=== PATIENT | male | born 1945 | race Caucasian/White ===

== ENCOUNTER 2017-04-12 11:07 | Emergency (ER) | payer MEDICARE ==
[~2017-04-12] VITALS: Ht 177.8 cm; Wt 95.8 kg
[2017-04-12 11:12] VITALS: BP 146/80
== END 2017-04-12 16:22 | disposition home or self-care (01) ==
LOC: ED 16:10
DX: S72.114A Nondisplaced fracture of greater trochanter of right femur, initial encounter for closed fracture (principal); M25.551 Pain in right hip; I10 Essential (primary) hypertension; X50.1XXA Overexertion from prolonged static or awkward postures, initial encounter; Y93.89 Activity, other specified; Y92.009 Unspecified place in unspecified non-institutional (private) residence as the place of occurrence of the external cause; Y99.9 Unspecified external cause status
CPT/HCPCS: 99284

== ENCOUNTER 2017-07-19 11:35 | Inpatient (IN) | payer MEDICARE ==
[~2017-07-19] VITALS: Ht 177.8 cm; Wt 98.1 kg
[~2017-07-19 11:35] MED LIST: IBUP-1221 PO; KETOROLAC 60 MG/2 ML ONE; LISI-167 PO; LOVA40TA2 PO; ROPIvacaine/PF 0.5%, 20 ML ONE; SODIUM CHLORIDE 0.9% 100 ML ONE; TRANEXAMIC ACID 100 MG/ML, 10ML ONE; VANCOMYCIN 1,000 MG ONE; [UNRECOGNIZED DRUG - OTHER] PO; [UNRECOGNIZED DRUG - OTHER] PO
[2017-07-19] MEDS ORDERED: FENTANYL PF 100 MCG/2ML ONE (11:45)
[2017-07-19] MEDS ORDERED: MIDAZOLAM 1 MG/ML, 2ML ONE (11:45)
[2017-07-19] MEDS ORDERED: SODIUM CHLORIDE 0.9% PF 10ML ONE (11:46)
[2017-07-19] MEDS ORDERED: PROPOFOL 10 MG/ML, 20ML ONE (11:46)
[2017-07-19] MEDS ORDERED: CEFAZOLIN 1,000 MG ONE ×3 (11:46→12:40)
[2017-07-19] MEDS ORDERED: LIDOCAINE 2% 100MG/5ML SYRINGE ONE (11:46)
[2017-07-19] MEDS ORDERED: LIDOCAINE 1%, 2ML ONE (11:50)
[2017-07-19] MEDS ORDERED: LACTATED RINGERS 1,000 ML IV SCH (11:53)
[2017-07-19 11:54] VITALS: BP 154/89
[2017-07-19] MEDS ORDERED: hydrALAzine 20 MG/ML, 1ML IV PRN (12:00)
[2017-07-19] MEDS ORDERED: ACETAMINOPHEN 325 MG TABLET PO PRN (12:00)
[2017-07-19] MEDS ORDERED: OXYcodone 5 MG/5 ML ORAL.SOL UDC PO PRN (12:00)
[2017-07-19] MEDS ORDERED: LABETALOL 5MG/ML, 20ML IV PRN (12:00)
[2017-07-19] MEDS ORDERED: VANCOMYCIN PER PHARMACY MC PRN (12:00)
[2017-07-19] MEDS ORDERED: HYDROmorphone 1 MG/ML, 1ML IV PRN ×2 (12:00→16:00)
[2017-07-19] MEDS ORDERED: LIDOCAINE 1%, 2ML SQ PRN (12:00)
[2017-07-19] MEDS ORDERED: ONDANSETRON 2MG/ML, 2ML IVPush PRN (12:00)
[2017-07-19] MEDS ORDERED: FENTANYL PF 100 MCG/2ML IV PRN (12:00)
[2017-07-19] MEDS ORDERED: PHARMACOKINETIC CONSULTATION MC ONE (12:00)
[2017-07-19] MEDS ORDERED: VANCOMYCIN 1,900 MG in SODIUM CHLORIDE 0.9% 250 ML IV ONE (12:00)
[2017-07-19] MEDS ORDERED: PROMETHAZINE 25 MG/ML, 1ML IV PRN (12:00)
[2017-07-19] MEDS ORDERED: MEPERIDINE/PF 25MG/0.5ML IVPush PRN (12:00)
[2017-07-19] MEDS ORDERED: GLYCOPYRROLATE 0.2MG/1ML, 5ML ONE (12:40)
[2017-07-19] MEDS ORDERED: ONDANSETRON 2MG/ML, 2ML ONE (12:40)
[2017-07-19] MEDS ORDERED: KETAMINE 10 MG/ML, 20ML ONE (12:40)
[2017-07-19] MEDS ORDERED: PHENYLEPHRINE 10 MG/ML ONE (12:40)
[2017-07-19] MEDS ORDERED: HYDROmorphone 2 MG/ML, 1ML ONE ×2 (13:13→14:14)
[2017-07-19] MEDS: D5%-0.45% NACL 1,000 ML IV SCH ×2 (15:37→19:19)
[2017-07-19] MEDS ORDERED: ZOLPIDEM 5MG TABLET PO PRN (16:00)
[2017-07-19] MEDS ORDERED: ONDANSETRON 4 MG TABLET PO PRN (16:00)
[2017-07-19] MEDS ORDERED: ACETAMINOPHEN 650 MG/20.3 ML UDC PO SCH (16:00)
[2017-07-19] MEDS ORDERED: PROMETHAZINE 12.5 MG SUPP PR PRN (16:00)
[2017-07-19] MEDS ORDERED: BISACODYL 10 MG SUPP PR PRN (16:00)
[2017-07-19] MEDS ORDERED: OXYcodone IR 5MG TABLET PO PRN (16:00)
[2017-07-19] MEDS ORDERED: PROMETHAZINE 25 MG/ML, 1ML IM PRN (16:00)
[2017-07-19] MEDS ORDERED: SENNA/DOCUSATE TABLET PO PRN (16:00)
[2017-07-19] MEDS ORDERED: ONDANSETRON 2MG/ML, 2ML IV PRN (16:00)
[2017-07-19] MEDS ORDERED: MAGNESIUM HYDROXIDE 8%, 30ML UDC PO PRN (16:00)
[2017-07-19] MEDS ORDERED: ALUMINUM/MAG/SIMETHICONE 30 ML UDC PO PRN (16:00)
[2017-07-19] MEDS ORDERED: DIPHENHYDRAMINE 50 MG CAPSULE PO PRN (16:00)
[2017-07-19] MEDS ORDERED: TRANEXAMIC ACID 1,000 MG in SODIUM CHLORIDE 0.9% 100 ML IVPB ONE (16:00)
[2017-07-19] MEDS ORDERED: DIAZEPAM 5 MG TABLET PO PRN (16:00)
[2017-07-19] MEDS ORDERED: HYDROcodone/APAP 10/325 MG TABLET PO PRN (16:00)
[2017-07-19] MEDS ORDERED: LOVASTATIN 40 MG TABLET PO SCH (16:30)
[2017-07-19 17:00] VITALS: BP 108/71
[2017-07-19] MEDS ORDERED: KETOROLAC 30 MG/1 ML IV SCH (17:00)
[2017-07-19] MEDS: ASPIRIN 81 MG TABLET EC PO SCH (18:10)
[2017-07-19] MEDS: OXYcodone IR 5MG TABLET PO SCH ×2 (18:10→22:00)
[2017-07-19] MEDS: TAMSULOSIN 0.4 MG CAP.ER.24H PO SCH (18:10)
[2017-07-19] MEDS: ACETAMINOPHEN 500 MG TABLET PO SCH ×2 (18:11→23:05)
[2017-07-19 19:12] VITALS: BP 105/76
[2017-07-19] MEDS: CEFAZOLIN PMX 2GM/50ML 50 ML IVPB SCH (19:19)
[2017-07-19] MEDS: DOCUSATE 100 MG CAPSULE PO SCH (23:04)
[2017-07-19 23:06] VITALS: BP 84/55
[2017-07-20] MEDS: OXYcodone IR 5MG TABLET PO SCH ×4 (02:00→13:42)
[2017-07-20 03:20] VITALS: BP 112/70
[2017-07-20] MEDS: CEFAZOLIN PMX 2GM/50ML 50 ML IVPB SCH (03:48)
[2017-07-20] MEDS: D5%-0.45% NACL 1,000 ML IV SCH ×2 (05:12→11:01)
[2017-07-20] MEDS: ACETAMINOPHEN 500 MG TABLET PO SCH ×2 (05:21→11:23)
[2017-07-20] MEDS: ASPIRIN 81 MG TABLET EC PO SCH (05:22)
[2017-07-20] MEDS ORDERED: DEXAMETHASONE 4 MG/ML, 1ML IVPush SCH (06:00)
[2017-07-20 08:19] VITALS: BP 117/67
[2017-07-20] MEDS ORDERED: MULTIVITAMINS/MINERALS TABLET PO SCH (09:00)
[2017-07-20] MEDS ORDERED: LISINOPRIL 10 MG TABLET PO SCH (09:00)
[2017-07-20] MEDS: TAMSULOSIN 0.4 MG CAP.ER.24H PO SCH (09:10)
[2017-07-20] MEDS: DOCUSATE 100 MG CAPSULE PO SCH (09:11)
[2017-07-20 13:08] VITALS: BP 87/46
[2017-07-20 14:00] VITALS: BP 97/51
[2017-07-20] MEDS ORDERED: OXYC5CAP2 PO (15:02)
[2017-07-20] MEDS ORDERED: KETOROLAC 30 MG/1 ML IV SCH (15:30)
== END 2017-07-20 15:10 | disposition home or self-care (01) | DRG 467 ==
LOC: ORIP 11:35 → 4NOR 16:51 → DCLOUNGE 07-20 15:00
PROVIDERS: ADMIT Orthopaedic Surgery; ATTEND Orthopaedic Surgery
PROC: 0SP90JZ Removal of Synthetic Substitute from Right Hip Joint, Open Approach (ICD-10-PCS; 2017-07-19)
PROC: 0QS604Z Reposition Right Upper Femur with Internal Fixation Device, Open Approach (ICD-10-PCS; 2017-07-19)
PROC: 0SR9029 Replacement of Right Hip Joint with Metal on Polyethylene Synthetic Substitute, Cemented, Open Approach (ICD-10-PCS; principal; 2017-07-19 12:45)
DX: T84.060A Wear of articular bearing surface of internal prosthetic right hip joint, initial encounter (principal); S72.111K Displaced fracture of greater trochanter of right femur, subsequent encounter for closed fracture with nonunion; M97.01XA Periprosthetic fracture around internal prosthetic right hip joint, initial encounter; T84.030A Mechanical loosening of internal right hip prosthetic joint, initial encounter; Z96.643 Presence of artificial hip joint, bilateral; Y83.8 Other surgical procedures as the cause of abnormal reaction of the patient, or of later complication, without mention of misadventure at the time of the procedure; I10 Essential (primary) hypertension; Y92.89 Other specified places as the place of occurrence of the external cause
CPT/HCPCS: 36415; 72170; 85014; 85018; 86850; 86900; 89051; J0690; J1100; J1170; J1885; J2250; J2405; J2704; J2795; J3010; J3370; J3490; J2370; J7050; J7120

== ENCOUNTER → 2018-02-21 | Outpatient (CLI) | payer MEDICARE ==
[~2018-02-21] MED LIST changes: -KETOROLAC 60 MG/2 ML ONE; +OXYC5CAP2 PO; -ROPIvacaine/PF 0.5%, 20 ML ONE; -SODIUM CHLORIDE 0.9% 100 ML ONE; -TRANEXAMIC ACID 100 MG/ML, 10ML ONE; -VANCOMYCIN 1,000 MG ONE
== END | disposition home or self-care (01) ==
LOC: CARD 09:43
PROVIDERS: ATTEND Internal Medicine
DX: E78.2 Mixed hyperlipidemia (principal); I10 Essential (primary) hypertension; R00.1 Bradycardia, unspecified
CPT/HCPCS: 93017

== ENCOUNTER → 2018-04-26 | Outpatient (CLI) | payer MEDICARE | END | disposition home or self-care (01) | LOC: CFH 10:56 | PROVIDERS: ATTEND Internal Medicine | DX: I08.1 Rheumatic disorders of both mitral and tricuspid valves (principal); I10 Essential (primary) hypertension; E78.5 Hyperlipidemia, unspecified | CPT/HCPCS: 93306 ==

== ENCOUNTER → 2018-08-11 | Outpatient (CLI) | payer MEDICARE | END | disposition home or self-care (01) | LOC: CFH 08:15 | PROVIDERS: ATTEND Internal Medicine Cardiovascular Disease | DX: I35.9 Nonrheumatic aortic valve disorder, unspecified (principal); I10 Essential (primary) hypertension | CPT/HCPCS: 78452; 93017; A9502 ==

== ENCOUNTER 2019-09-20 00:24 | Emergency (ER) | payer MEDICARE ==
[~2019-09-20] VITALS: Ht 177.8 cm; Wt 98.0 kg
[2019-09-20] MEDS ORDERED: ONDANSETRON 2MG/ML, 2ML ONE (00:50)
[2019-09-20] MEDS ORDERED: ONDANSETRON ODT 4 MG PO ONE (01:00)
[2019-09-20] MEDS ORDERED: SODIUM CHLORIDE FLUSH 10ML SYR IVF ONE (01:00)
[2019-09-20 01:16] LABS: BASOPHILS # (AUTO) 0.02 x10^3/uL (0-0.1); BASOPHILS % (AUTO) 0 % (0-1); EOSINOPHILS # (AUTO) 0.05 x10^3/uL (0-0.4); EOSINOPHILS % (AUTO) 1 % (1-7); LYMPHOCYTES # (AUTO) 0.79 x10^3/uL (1-3.4); LYMPHOCYTES % (AUTO) 13 % (22-44); MD NO; MEAN CORPUSCULAR HEMOGLOBIN 29.6 pg (27.5-34.5); MEAN CORPUSCULAR HGB CONC 33.5 g/dL (33.2-36.2); MEAN CORPUSCULAR VOLUME 88.3 fL (81-97); MEAN PLATELET VOLUME 8.6 fL (7.4-10.4); MONOCYTES # (AUTO) 0.57 x10^3/uL (0.2-0.8); MONOCYTES % (AUTO) 10 % (2-9); NEUTROPHILS # (AUTO) 4.57 x10^3/uL (1.8-6.8); NEUTROPHILS % (AUTO) 76 % (42-75); PLATELET COUNT 151 x10^3/uL (130-400); RED BLOOD COUNT 5.36 x10^6/uL (4.38-5.82)
[2019-09-20 01:19] LABS: ALANINE AMINOTRANSFERASE 24 U/L (12-78); ALBUMIN 3.8 g/dL (3.4-5.0); ANION GAP 8 mmol/L (5-15); CALCIUM 9.3 mg/dL (8.5-10.1); CHLORIDE 107 mmol/L (98-107); CREATININE 0.79 mg/dL (0.7-1.3)
[2019-09-20 01:23] LABS: ALKALINE PHOSPHATASE 110 U/L (45-117); BILIRUBIN,TOTAL 0.4 mg/dL (0.2-1.0); TOTAL PROTEIN 7.5 g/dL (6.4-8.2); TROPONIN I < 0.015 ng/mL (0.000-0.045)
[2019-09-20 01:54] VITALS: BP 159/93
--- NOTE | 2019-09-20 01:56 | NUR ---
Break RN: pt able to ambulate in hallway with steady gait. Pt reports some lightheadedness, but also reports feeling tired. Pt returned to [facility]. VS retaken. and PA updated.
--- NOTE | 2019-09-20 02:04 | NUR ---
PT RESTING COMFORTABLY. MONITOR IN PLACE. FAMILY AT BEDSIDE.
== END 2019-09-20 02:23 | disposition home or self-care (01) ==
LOC: ED 02:00
DX: R55 Syncope and collapse (principal); R42 Dizziness and giddiness; R11.0 Nausea; I10 Essential (primary) hypertension; E78.00 Pure hypercholesterolemia, unspecified
CPT/HCPCS: 71045; 80053; 80307; 82962; 84484; 85025; 93005; 99285

== ENCOUNTER → 2019-12-11 | Outpatient (CLI) | payer MEDICARE ==
[~2019-12-11] MED LIST changes: +ASPI81TA45 PO; +DIGE1TAB PO; +LOSA25TA25 PO; +[UNRECOGNIZED DRUG - OTHER] PO
[2019-12-11 14:46] LABS: BASOPHILS # (AUTO) 0.04 x10^3/uL (0-0.1); BASOPHILS % (AUTO) 1 % (0-1); EOSINOPHILS # (AUTO) 0.11 x10^3/uL (0-0.4); EOSINOPHILS % (AUTO) 2 % (1-7); LYMPHOCYTES % (AUTO) 19 % (22-44); MD NO; MEAN CORPUSCULAR HEMOGLOBIN 29.2 pg (27.5-34.5); MEAN CORPUSCULAR HGB CONC 33.4 g/dL (33.2-36.2); MEAN CORPUSCULAR VOLUME 87.5 fL (81-97); MEAN PLATELET VOLUME 8.3 fL (7.4-10.4); MONOCYTES # (AUTO) 0.65 x10^3/uL (0.2-0.8); MONOCYTES % (AUTO) 11 % (2-9); NEUTROPHILS # (AUTO) 3.99 x10^3/uL (1.8-6.8); NEUTROPHILS % (AUTO) 68 % (42-75); PLATELET COUNT 193 x10^3/uL (130-400); RED BLOOD COUNT 5.41 x10^6/uL (4.38-5.82); RED CELL DISTRIBUTION WIDTH 13.5 % (9.4-14.8)
[2019-12-11 14:54] LABS: CHLORIDE 106 mmol/L (98-107)
[2019-12-11 15:00] LABS: ALANINE AMINOTRANSFERASE 25 U/L (12-78); ALBUMIN 3.9 g/dL (3.4-5.0); ALKALINE PHOSPHATASE 139 U/L (45-117); ANION GAP 6 mmol/L (5-15); BILIRUBIN,TOTAL 0.6 mg/dL (0.2-1.0); CALCIUM 9.3 mg/dL (8.5-10.1); CREATININE 0.86 mg/dL (0.7-1.3); TOTAL PROTEIN 7.8 g/dL (6.4-8.2)
== END | disposition home or self-care (01) ==
LOC: STAR 13:41
PROVIDERS: ATTEND Orthopaedic Surgery
DX: Z01.818 Encounter for other preprocedural examination (principal); I51.7 Cardiomegaly; Z96.642 Presence of left artificial hip joint
CPT/HCPCS: 36415; 80053; 85025; 87081; 93005